=== PATIENT | male | born 1935 | race Caucasian/White ===

== ENCOUNTER → 2017-12-28 | Outpatient (CLI) | payer MEDICARE, OTHER ==
[~2017-12-28] MED LIST: ASPI81CH PO; CELE200 PO; LEVSOD137 PO; Lisinopril2.5 MG; METF500 PO; Percocet 5-3251 EACH PO
[2017-12-28 15:16] LABS: Alanine Aminotransfer (ALT/SGP 19 U/L (12-78); Albumin, Blood 3.3 g/dL (3.4-5.0); Albumin/Globulin Ratio 0.7 (0.8-1.8); Alk Phos 405 U/L (50-136); Anion Gap 6 mmol/L (6-16); Aspartate Aminotrans (AST/SGOT 41 U/L (12-37); Bilirubin, Total 0.5 mg/dL (0.1-1.0); Blood Urea Nitrogen 13 mg/dL (8-24); Bun/Creatinine Ratio 16.6 (12.0-20.0); CO2, Blood 30 mmol/L (21-32); Calcium, Blood 8.7 mg/dL (8.5-10.1); Chloride, Blood 101 mmol/L (98-108); Creatinine, Blood 0.79 mg/dL (0.60-1.20); Globulin, Blood 4.8 g/dL (2.2-4.0); Glomerular Filtration Rate >60 (60-); Glucose, Blood 86 mg/dL (70-99); Potassium, Blood 4.6 mmol/L (3.5-5.5); Sodium, Blood 137 mmol/L (136-145); Total Protein, Blood 8.1 g/dL (6.4-8.2)
[2017-12-28 15:30] LABS: BASOPHILS ABSOLUTE AUTO 0.07 K/mm3 (0.00-0.23); BASOPHILS PERCENT AUTO 1 % (0-2); EOSINOPHILS ABSOLUTE AUTO 0.28 K/mm3 (0.00-0.68); EOSINOPHILS PERCENT AUTO 3 % (0-6); Hematocrit 39.3 % (37.0-53.0); Hemoglobin 12.3 g/dL (13.5-17.5); IMMATURE GRAN PERCENT AUTO 2 % (0-1); LYMPHOCYTES ABSOLUTE AUTO 1.52 K/mm3 (0.84-5.20); LYMPHOCYTES PERCENT AUTO 18 % (21-46); MONOCYTES ABSOLUTE AUTO 0.89 K/mm3 (0.16-1.47); MONOCYTES PERCENT AUTO 10 % (4-13); Mean Corpuscular HGB 29.1 pg (26.0-34.0); Mean Corpuscular HGB Conc 31.3 g/dL (31.5-36.5); Mean Corpuscular Volume 93 fL (80-100); Mean Platelet Volume 8.8 fL (9.1-12.4); NEUTROPHILS ABSOLUTE AUTO 5.56 K/mm3 (1.96-9.15); NEUTROPHILS PERCENT AUTO 65 % (41-73); Platelet Count 396 K/mm3 (150-400); RDW Coefficient Variation 13.6 % (11.7-14.2); RDW Standard Deviation 46.3 fL (35.1-46.3); Red Blood Cell Count 4.23 M/mm3 (4.30-5.90); White Blood Cell Count 8.52 K/mm3 (4.00-11.30)
== END ==
LOC: LAB SHORT 14:45
PROVIDERS: Nurse Practitioner
DX: M54.5 Low back pain (principal)
CPT/HCPCS: 80053; 85025; 85027; 85651

== ENCOUNTER 2017-12-31 08:19 | Emergency (ER) | payer MEDICARE, OTHER ==
[~2017-12-31] VITALS: Ht 177.8 cm; Wt 95.2 kg
[2017-12-31] MEDS ORDERED: LEVSOD137 PO (08:37)
[2017-12-31] MEDS ORDERED: CELE200 PO (08:37)
[2017-12-31] MEDS ORDERED: METF500 PO (08:37)
[2017-12-31] MEDS ORDERED: Lisinopril2.5 MG (08:38)
[2017-12-31] MEDS ORDERED: ASPI81CH PO (08:38)
[2017-12-31 09:06] LABS: BASOPHILS ABSOLUTE AUTO 0.04 K/mm3 (0.00-0.23); BASOPHILS PERCENT AUTO 0 % (0-2); EOSINOPHILS ABSOLUTE AUTO 0.05 K/mm3 (0.00-0.68); EOSINOPHILS PERCENT AUTO 0 % (0-6); Hemoglobin 12.4 g/dL (13.5-17.5); IMMATURE GRAN ABSOLUTE AUTO 0.15 K/mm3 (0.00-0.10); IMMATURE GRAN PERCENT AUTO 1 % (0-1); LYMPHOCYTES ABSOLUTE AUTO 1.22 K/mm3 (0.84-5.20); LYMPHOCYTES PERCENT AUTO 10 % (21-46); MONOCYTES ABSOLUTE AUTO 1.93 K/mm3 (0.16-1.47); MONOCYTES PERCENT AUTO 15 % (4-13); Mean Corpuscular HGB 29.5 pg (26.0-34.0); Mean Corpuscular HGB Conc 31.8 g/dL (31.5-36.5); Mean Corpuscular Volume 93 fL (80-100); NEUTROPHILS ABSOLUTE AUTO 9.22 K/mm3 (1.96-9.15); NEUTROPHILS PERCENT AUTO 73 % (41-73); Platelet Count 340 K/mm3 (150-400); RDW Coefficient Variation 13.9 % (11.7-14.2); RDW Standard Deviation 47.2 fL (35.1-46.3); Red Blood Cell Count 4.21 M/mm3 (4.30-5.90); White Blood Cell Count 12.61 K/mm3 (4.00-11.30)
[2017-12-31 10:09] LABS: Glutamyl Transpeptidase, GGT 159 U/L (15-85)
[2017-12-31 10:17] LABS: Alanine Aminotransfer (ALT/SGP 13 U/L (12-78); Albumin, Blood 3.1 g/dL (3.4-5.0); Albumin/Globulin Ratio 0.7 (0.8-1.8); Alk Phos 470 U/L (50-136); Anion Gap 11 mmol/L (6-16); Aspartate Aminotrans (AST/SGOT 58 U/L (12-37); Blood Urea Nitrogen 23 mg/dL (8-24); Bun/Creatinine Ratio 28.9 (12.0-20.0); CO2, Blood 24 mmol/L (21-32); Chloride, Blood 102 mmol/L (98-108); Globulin, Blood 4.6 g/dL (2.2-4.0); Glomerular Filtration Rate >60 (60-); Glucose, Blood 108 mg/dL (70-99); Potassium, Blood 4.1 mmol/L (3.5-5.5); Sodium, Blood 137 mmol/L (136-145); Total Protein, Blood 7.7 g/dL (6.4-8.2)
[2017-12-31] MEDS ORDERED: Percocet 5-3251 EACH PO (10:40)
== END 2017-12-31 10:55 | disposition home or self-care (01) ==
LOC: ER 08:19 → LAB 08:19 → EDSTATUS 08:20 → ER 10:55
PROVIDERS: Emergency Medicine; Internal Medicine
DX: M54.5 Low back pain (principal); I10 Essential (primary) hypertension; E11.9 Type 2 diabetes mellitus without complications; I48.91 Unspecified atrial fibrillation; R93.7 Abnormal findings on diagnostic imaging of other parts of musculoskeletal system; R79.89 Other specified abnormal findings of blood chemistry; Z79.84 Long term (current) use of oral hypoglycemic drugs; Z79.899 Other long term (current) drug therapy; Z79.82 Long term (current) use of aspirin; Z79.891 Long term (current) use of opiate analgesic; Z85.9 Personal history of malignant neoplasm, unspecified
CPT/HCPCS: 36415; 72070; 72100; 80053; 82977; 83036; 84153; 84443; 85025; 99283

== ENCOUNTER → 2018-03-04 | Outpatient (CLI) | payer MEDICARE, OTHER | END | disposition home or self-care (01) | LOC: LAB SHORT 07:53 → PLD 07:53 | DX: L81.4 Other melanin hyperpigmentation (principal) | CPT/HCPCS: 88305 ==

== ENCOUNTER → 2019-02-26 | Outpatient (CLI) | payer MEDICARE, OTHER | END | disposition home or self-care (01) | LOC: LAB SHORT 09:09 → PLD 09:09 | DX: D48.5 Neoplasm of uncertain behavior of skin (principal) | CPT/HCPCS: 88305 ==

== ENCOUNTER 2019-06-24 14:28 | Day surgery (SDC) | payer MEDICARE, OTHER | END 2019-06-24 22:48 | disposition home or self-care (01) | LOC: US 14:28 | DX: J90 Pleural effusion, not elsewhere classified (principal); C61 Malignant neoplasm of prostate; Z79.01 Long term (current) use of anticoagulants; Z51.81 Encounter for therapeutic drug level monitoring | CPT/HCPCS: 32555; 36415; 71045; 85610; 85730; 88108 ==

== ENCOUNTER 2019-07-22 14:01 | Day surgery (SDC) | payer MEDICARE, OTHER | END 2019-07-22 23:07 | disposition home or self-care (01) | LOC: US 14:01 | DX: J90 Pleural effusion, not elsewhere classified (principal); C61 Malignant neoplasm of prostate | CPT/HCPCS: 32555; 71045 ==

== ENCOUNTER 2019-08-05 13:49 | Inpatient (IN) | payer MEDICARE, OTHER ==
[~2019-08-05] VITALS: Ht 177.8 cm; Wt 101.8 kg
[2019-08-05 14:41] LABS: BASOPHILS ABSOLUTE AUTO 0.04 K/mm3 (0.00-0.23); BASOPHILS PERCENT AUTO 1 % (0-2); EOSINOPHILS ABSOLUTE AUTO 0.18 K/mm3 (0.00-0.68); EOSINOPHILS PERCENT AUTO 4 % (0-6); Hematocrit 36.2 % (37.0-53.0); Hemoglobin 11.6 g/dL (13.5-17.5); IMMATURE GRAN ABSOLUTE AUTO 0.03 K/mm3 (0.00-0.10); IMMATURE GRAN PERCENT AUTO 1 % (0-1); LYMPHOCYTES PERCENT AUTO 13 % (21-46); MONOCYTES ABSOLUTE AUTO 0.69 K/mm3 (0.16-1.47); MONOCYTES PERCENT AUTO 15 % (4-13); Mean Corpuscular HGB 32.7 pg (26.0-34.0); Mean Corpuscular Volume 102 fL (80-100); Mean Platelet Volume 10.1 fL (9.1-12.4); NEUTROPHILS ABSOLUTE AUTO 2.95 K/mm3 (1.96-9.15); NEUTROPHILS PERCENT AUTO 66 % (41-73); Platelet Count 295 K/mm3 (150-400); RDW Coefficient Variation 15.9 % (11.7-14.2); Red Blood Cell Count 3.55 M/mm3 (4.30-5.90); White Blood Cell Count 4.49 K/mm3 (4.00-11.30)
[2019-08-05 15:09] LABS: Alanine Aminotransfer (ALT/SGP 11 U/L (12-78); Albumin, Blood 3.2 g/dL (3.4-5.0); Alk Phos 84 U/L (50-136); Anion Gap 2 mmol/L (6-16); Aspartate Aminotrans (AST/SGOT 36 U/L (12-37); Bilirubin, Total 0.7 mg/dL (0.1-1.0); Blood Urea Nitrogen 17 mg/dL (8-24); Bun/Creatinine Ratio 22.1 (12.0-20.0); CO2, Blood 31 mmol/L (21-32); Calcium, Blood 8.3 mg/dL (8.5-10.1); Chloride, Blood 109 mmol/L (98-108); Creatinine, Blood 0.77 mg/dL (0.60-1.20); Globulin, Blood 3.3 g/dL (2.2-4.0); Glomerular Filtration Rate >60 (60-); Glucose, Blood 100 mg/dL (70-99); Sodium, Blood 142 mmol/L (136-145); Total Protein, Blood 6.5 g/dL (6.4-8.2); Troponin I <0.015 ng/mL (0.000-0.040)
--- NOTE | 2019-08-05 23:17 | NUR ---
ordered cath, inserted with minimum discomfort for pt, draining clear urine, will send sample to lab for ua culture, medicated for pain prior to procedure. a+o, on lasix bid, followed dpt procedure for keller insert
[2019-08-06 01:01] LABS: Source, Urine Catheter
[2019-08-06 01:06] LABS: Bilirubin, Urine Neg (Neg); Blood, Urine 1+ (Neg); Glucose Qualitative, Urine Neg (Neg); Ketones, Urine Neg (Neg); Leukocyte Esterase, Urine Neg (Neg); Nitrite, Urine Neg (Neg); Protein, Urine Neg (Neg); Urobilinogen, Urine NORM (Normal)
[2019-08-06 01:08] LABS: Appearance, Urine Clear (Clear); Color, Urine Pale Yellow (P-Yellow)
[2019-08-06 01:14] LABS: Bacteria Not Seen /hpf; Red Blood Cells, Urine 0-2 /hpf (0-2); Squamous Epithelial Cells Not Seen /hpf (Few); White Blood Cells, Urine Not Seen /hpf (0-5)
[2019-08-06 04:26] LABS: BASOPHILS ABSOLUTE AUTO 0.04 K/mm3 (0.00-0.23); BASOPHILS PERCENT AUTO 1 % (0-2); EOSINOPHILS ABSOLUTE AUTO 0.18 K/mm3 (0.00-0.68); EOSINOPHILS PERCENT AUTO 5 % (0-6); Hematocrit 37.7 % (37.0-53.0); Hemoglobin 11.8 g/dL (13.5-17.5); IMMATURE GRAN ABSOLUTE AUTO 0.02 K/mm3 (0.00-0.10); IMMATURE GRAN PERCENT AUTO 1 % (0-1); LYMPHOCYTES ABSOLUTE AUTO 0.58 K/mm3 (0.84-5.20); LYMPHOCYTES PERCENT AUTO 14 % (21-46); MONOCYTES ABSOLUTE AUTO 0.73 K/mm3 (0.16-1.47); MONOCYTES PERCENT AUTO 18 % (4-13); Mean Corpuscular HGB 31.6 pg (26.0-34.0); Mean Corpuscular HGB Conc 31.3 g/dL (31.5-36.5); Mean Corpuscular Volume 101 fL (80-100); Mean Platelet Volume 9.8 fL (9.1-12.4); NEUTROPHILS ABSOLUTE AUTO 2.49 K/mm3 (1.96-9.15); NEUTROPHILS PERCENT AUTO 62 % (41-73); Platelet Count 270 K/mm3 (150-400); RDW Coefficient Variation 15.9 % (11.7-14.2); RDW Standard Deviation 59.4 fL (35.1-46.3); Red Blood Cell Count 3.73 M/mm3 (4.30-5.90); White Blood Cell Count 4.04 K/mm3 (4.00-11.30)
[2019-08-06 04:54] LABS: Alanine Aminotransfer (ALT/SGP 12 U/L (12-78); Albumin, Blood 3.4 g/dL (3.4-5.0); Alk Phos 78 U/L (50-136); Anion Gap 5 mmol/L (6-16); Aspartate Aminotrans (AST/SGOT 22 U/L (12-37); Bilirubin, Total 0.7 mg/dL (0.1-1.0); Blood Urea Nitrogen 15 mg/dL (8-24); Bun/Creatinine Ratio 17.6 (12.0-20.0); CO2, Blood 34 mmol/L (21-32); Calcium, Blood 8.2 mg/dL (8.5-10.1); Chloride, Blood 103 mmol/L (98-108); Creatinine, Blood 0.85 mg/dL (0.60-1.20); Globulin, Blood 3.3 g/dL (2.2-4.0); Glomerular Filtration Rate >60 (60-); Glucose, Blood 111 mg/dL (70-99); Potassium, Blood 3.1 mmol/L (3.5-5.5); Sodium, Blood 142 mmol/L (136-145); Total Protein, Blood 6.7 g/dL (6.4-8.2); Troponin I 0.025 ng/mL (0.000-0.040)
--- NOTE | 2019-08-06 06:42 | NUR ---
a+o, draining light yellow urine in keller, call light in reach, room air, minimized movement so no sob episodes, will continue to monitor and treat until able to share bsr with day staff, a+o, legs remain swollen
[2019-08-06 10:09] LABS: Automated BF WBC Count 0.285 K/mm3 (0-999); Body Fluid WBC Count 285 /mm3 (0-999)
[2019-08-06 10:13] LABS: pH, Body Fluid 7.9
[2019-08-06 10:28] LABS: Glucose, Body Fluid 122 mg/dL; Lactate Dehydrogenase, Body Fl 136 U/L; Protein, Body Fluid 2.9 g/dL
[2019-08-06 10:51] LABS: RBC Count, Body Fluid 90 /mm3 (0-0)
[2019-08-06 10:55] LABS: Total Cell Count, Body Fluid 100
[2019-08-06 10:56] LABS: Appearance, Body Fluid Clear (Clear); Color, Body Fluid L Yellow (None-Yellow)
--- NOTE | 2019-08-06 16:55 | NUR ---
SHIFT SUMMARY NO ACUTE CHANGES. PATIENT DENIES PAIN, NAUSEA, AND SHORTNESS OF BREATH. PATIENT UP SBA IN ROOM. PATIENT HAD THORACENTISIS TODAY. PATIENT NAPPED OFF AND ON DURING SHIFT. PATIENT REPORTS HE IS FEELING MUCH BETTER. CALL LIGHT IN REACH.
[2019-08-07 04:59] LABS: Hematocrit 35.6 % (37.0-53.0); Hemoglobin 11.5 g/dL (13.5-17.5); Mean Corpuscular HGB 31.9 pg (26.0-34.0); Mean Corpuscular HGB Conc 32.3 g/dL (31.5-36.5); Mean Corpuscular Volume 99 fL (80-100); Mean Platelet Volume 9.7 fL (9.1-12.4); Platelet Count 282 K/mm3 (150-400); RDW Coefficient Variation 15.9 % (11.7-14.2); RDW Standard Deviation 57.3 fL (35.1-46.3); White Blood Cell Count 5.18 K/mm3 (4.00-11.30)
[2019-08-07 06:04] LABS: Albumin, Blood 2.9 g/dL (3.4-5.0); Anion Gap 7 mmol/L (6-16); Blood Urea Nitrogen 20 mg/dL (8-24); Bun/Creatinine Ratio 20.6 (12.0-20.0); CO2, Blood 33 mmol/L (21-32); Calcium, Blood 8.9 mg/dL (8.5-10.1); Chloride, Blood 100 mmol/L (98-108); Creatinine, Blood 0.97 mg/dL (0.60-1.20); Glomerular Filtration Rate >60 (60-); Glucose, Blood 111 mg/dL (70-99); Phosphorus, Blood 4.6 mg/dL (2.5-4.9); Potassium, Blood 3.6 mmol/L (3.5-5.5); Sodium, Blood 140 mmol/L (136-145)
--- NOTE | 2019-08-07 07:17 | NUR ---
a+o, saline locked, room air, bsr shared with pt and staff, hearing aids were in so able to participate in bsr, call light in reach, no major change in condition during shift
--- NOTE | 2019-08-07 18:21 | NUR ---
SHIFT SUMMARY. A&OX4, SBA TO BATHROOM, PT IS AWARE OF LIMITATIONS AND CALLS APPROPRIATELY. PT DENIES PAIN, SOB, N/V. HARLEY CATHETER REMOVED THIS AFTERNOON, PT VOIDING WIHTOUT ISSUE.
[2019-08-08 04:53] LABS: BASOPHILS ABSOLUTE AUTO 0.03 K/mm3 (0.00-0.23); BASOPHILS PERCENT AUTO 1 % (0-2); EOSINOPHILS ABSOLUTE AUTO 0.38 K/mm3 (0.00-0.68); EOSINOPHILS PERCENT AUTO 7 % (0-6); Hematocrit 35.7 % (37.0-53.0); Hemoglobin 11.5 g/dL (13.5-17.5); IMMATURE GRAN ABSOLUTE AUTO 0.04 K/mm3 (0.00-0.10); IMMATURE GRAN PERCENT AUTO 1 % (0-1); LYMPHOCYTES ABSOLUTE AUTO 0.74 K/mm3 (0.84-5.20); LYMPHOCYTES PERCENT AUTO 13 % (21-46); MONOCYTES ABSOLUTE AUTO 1.04 K/mm3 (0.16-1.47); MONOCYTES PERCENT AUTO 18 % (4-13); Mean Corpuscular HGB 31.7 pg (26.0-34.0); Mean Corpuscular HGB Conc 32.2 g/dL (31.5-36.5); Mean Corpuscular Volume 98 fL (80-100); Mean Platelet Volume 9.5 fL (9.1-12.4); NEUTROPHILS ABSOLUTE AUTO 3.66 K/mm3 (1.96-9.15); NEUTROPHILS PERCENT AUTO 62 % (41-73); Platelet Count 290 K/mm3 (150-400); RDW Coefficient Variation 15.7 % (11.7-14.2); RDW Standard Deviation 56.2 fL (35.1-46.3); Red Blood Cell Count 3.63 M/mm3 (4.30-5.90); White Blood Cell Count 5.89 K/mm3 (4.00-11.30)
[2019-08-08 05:13] LABS: Albumin, Blood 2.9 g/dL (3.4-5.0); Anion Gap 6 mmol/L (6-16); Blood Urea Nitrogen 25 mg/dL (8-24); Bun/Creatinine Ratio 24.5 (12.0-20.0); CO2, Blood 36 mmol/L (21-32); Calcium, Blood 9.4 mg/dL (8.5-10.1); Chloride, Blood 97 mmol/L (98-108); Creatinine, Blood 1.02 mg/dL (0.60-1.20); Glomerular Filtration Rate >60 (60-); Glucose, Blood 102 mg/dL (70-99); Phosphorus, Blood 5.2 mg/dL (2.5-4.9); Potassium, Blood 4.1 mmol/L (3.5-5.5); Sodium, Blood 139 mmol/L (136-145)
--- NOTE | 2019-08-08 06:49 | NUR ---
a+o, [place] without hearing aids, medicated as prescribed, edema is reduced calllight in reach, saline locked, room air, will share bsr with staff and pt
--- NOTE | 2019-08-08 18:05 | NUR ---
SHIFT SUMMARY. A&OX4, INDEPENDENT IN ROOM. PT DENIES PAIN, SOB, N/V. PT/OT EVAL COMPLETED TODAY, IT IS RECOMENDED HOME WITH HOME HEALTH. NO NEW CHANGES OR CONCERNS.
--- NOTE | 2019-08-09 05:14 | NUR ---
SUMMARY NO ACUTE CHANGES NOTED THROUGH THE NIGHT. PT HAS SLEPT WITH NO PROBLEMS. PT IS INDEPENDENT IN THE ROOM AND CALLS PRN. CALL LIGHT IS IN REACH. TM
[2019-08-09 09:04] LABS: Anion Gap 6 mmol/L (6-16); Blood Urea Nitrogen 25 mg/dL (8-24); Bun/Creatinine Ratio 22.7 (12.0-20.0); CO2, Blood 35 mmol/L (21-32); Calcium, Blood 9.6 mg/dL (8.5-10.1); Chloride, Blood 95 mmol/L (98-108); Glomerular Filtration Rate >60 (60-); Glucose, Blood 125 mg/dL (70-99); Potassium, Blood 4.2 mmol/L (3.5-5.5); Sodium, Blood 136 mmol/L (136-145)
--- NOTE | 2019-08-09 10:00 | NUR ---
THE PTS FAMILY NOTICED THAT THE PT SUDDENLY WAS UNABLE TO VERBALIZE, AND APPEARED FRUSTRATED, THE PT DID APPEAR CONFUSED, WAS TRYING TO DISROBE WAS UNABLE TO AMBULATE WITHOUT MODERATE ASSISTANCE, VS TAKEN WNL, A CALL WAS MADE TO SHIRLEY BERNSTEIN
[2019-08-09 10:38] LABS: BASOPHILS ABSOLUTE AUTO 0.03 K/mm3 (0.00-0.23); BASOPHILS PERCENT AUTO 1 % (0-2); EOSINOPHILS ABSOLUTE AUTO 0.27 K/mm3 (0.00-0.68); EOSINOPHILS PERCENT AUTO 4 % (0-6); Hematocrit 39.3 % (37.0-53.0); Hemoglobin 12.8 g/dL (13.5-17.5); IMMATURE GRAN ABSOLUTE AUTO 0.06 K/mm3 (0.00-0.10); IMMATURE GRAN PERCENT AUTO 1 % (0-1); LYMPHOCYTES PERCENT AUTO 13 % (21-46); MONOCYTES ABSOLUTE AUTO 1.03 K/mm3 (0.16-1.47); MONOCYTES PERCENT AUTO 17 % (4-13); Mean Corpuscular HGB 31.4 pg (26.0-34.0); Mean Corpuscular HGB Conc 32.6 g/dL (31.5-36.5); Mean Corpuscular Volume 96 fL (80-100); Mean Platelet Volume 9.9 fL (9.1-12.4); NEUTROPHILS ABSOLUTE AUTO 3.96 K/mm3 (1.96-9.15); NEUTROPHILS PERCENT AUTO 64 % (41-73); Platelet Count 335 K/mm3 (150-400); RDW Coefficient Variation 15.7 % (11.7-14.2); RDW Standard Deviation 54.9 fL (35.1-46.3); Red Blood Cell Count 4.08 M/mm3 (4.30-5.90); White Blood Cell Count 6.15 K/mm3 (4.00-11.30)
[2019-08-09 10:47] LABS: Albumin, Blood 3.4 g/dL (3.4-5.0); Albumin/Globulin Ratio 0.9 (0.8-1.8); Bilirubin, Direct 0.3 mg/dL (0.0-0.3); Bilirubin, Indirect 0.6 mg/dL (0.1-0.7); Bilirubin, Total 0.9 mg/dL (0.1-1.0); Globulin, Blood 3.7 g/dL (2.2-4.0); Total Protein, Blood 7.1 g/dL (6.4-8.2)
[2019-08-09 10:58] LABS: Source, Urine Clean Catch
[2019-08-09 11:19] LABS: Appearance, Urine Clear (Clear); Bilirubin, Urine Neg (Neg); Blood, Urine Neg (Neg); Color, Urine Yellow (P-Yellow); Glucose Qualitative, Urine Neg (Neg); Ketones, Urine Neg (Neg); Leukocyte Esterase, Urine Neg (Neg); Nitrite, Urine Neg (Neg); Protein, Urine Neg (Neg); Urobilinogen, Urine NORM (Normal)
--- NOTE | 2019-08-09 12:49 | NUR ---
CHECKED THE PTS BLOOD SUGAR PER FAMILY REQUEST, BLOOD SUGAR WAS 115
--- NOTE | 2019-08-09 17:46 | NUR ---
THE PT IS A/OX3, PT IS UP WITH MINIMAL TO MODERATE ASSIST UP TO THE BATHROOM, THE PT THIS AM BECAME CONFUSED AND NON VOCAL FOR A TIME, WAS UNABLE TO GET UP WITHOUT ASSISTANCE, A CALL WAS MADE TO DR. WATSON WHO CAME TO ASSESS THE PT, A CT SCAN OF THE HEAD WAS ORDERED AND DONE, A UA WAS ORDERED AND COLLECTED THE PTS FAMILY AND FRIEND HAVE BEEN AT THE BEDSIDE T/O THE DAY, THE PT APPEARS TO BE BREATHING EASILY ON RA, DENIED HAVING ANY PAIN T/O THE DAY, CALL LIGHT IN REACH
--- NOTE | 2019-08-10 00:16 | NUR ---
CONFUSION/AGITATION PT WAS A/OX4 TO MY QUESTIONS AT THE BEGINNING OF THE SHIFT, BUT APPEARED AGIATED TRYING TO DISROBE I WAS DOING MY ASSESSMENT. THE EVENING PROGRESSED PT CONFUSION RESUMED FROM DAYSHIFT. PT ATTEMPTED TO CLIMB OOB SEVERAL TIMES WITHIN AN HOUR DESPITE REDIRECTION AND ORIENTATION. PT DOES NOT KNOW WHERE HE IS WHEN ASKED, AND DOES NOT FOLLOW DIRECTION. PEANUT SORTER NOTIFIED. SCU ASSIGNMENT MADE, AND PT TRANSFFERED TO SCU RM 349. REPORT GIVEN TO ASHLEY BOYKIN RN. BELONGININGS WITH PT.
--- NOTE | 2019-08-10 02:29 | NUR ---
Pt transferred to room [facility] around 0100. VSS.
--- NOTE | 2019-08-10 04:02 | NUR ---
Shift summary: Pt transferred to room 349 from room 360 last pm due to increasing confusion. Pt weak and confused. Pt keeps trying to get out of bed for no reason but is easily directed back to bed. Bed alarm on. Head ct was neg. Pt can follow commands and speech is ok. Incontinent of urine x 1 .
[2019-08-10 08:53] LABS: Alanine Aminotransfer (ALT/SGP 11 U/L (12-78); Albumin, Blood 3.3 g/dL (3.4-5.0); Albumin/Globulin Ratio 0.9 (0.8-1.8); Alk Phos 80 U/L (50-136); Anion Gap 6 mmol/L (6-16); Aspartate Aminotrans (AST/SGOT 30 U/L (12-37); Bilirubin, Total 0.9 mg/dL (0.1-1.0); Blood Urea Nitrogen 29 mg/dL (8-24); Bun/Creatinine Ratio 25.2 (12.0-20.0); CO2, Blood 34 mmol/L (21-32); Calcium, Blood 9.3 mg/dL (8.5-10.1); Chloride, Blood 96 mmol/L (98-108); Creatinine, Blood 1.15 mg/dL (0.60-1.20); Free Thyroxine 1.45 ng/dL (0.70-1.60); Globulin, Blood 3.5 g/dL (2.2-4.0); Glomerular Filtration Rate >60 (60-); Glucose, Blood 110 mg/dL (70-99); Potassium, Blood 3.8 mmol/L (3.5-5.5); Sodium, Blood 136 mmol/L (136-145); Total Protein, Blood 6.8 g/dL (6.4-8.2)
--- NOTE | 2019-08-10 17:27 | NUR ---
HE HAS BEEN BACK AND FORTH FROM THE BED TO THE CHAIR MULTIPLE TIMES TODAY, ALWAYS WITH 1 ASSIST. HE HAS NEVER USED THE CALL LIGHT. THE [employer]ERA STAFF HAS CALLED EACH TIME TO TELL US BEFORE THE ALARMS SOUNDED. HE KNOW PERSON, PLACE, AND TIME BUT HAS A BLANK STARE AND DELAYED VERBAL RESPONSES. HIS RESPONSES ARE APPROPRIATE. HIS DAUGHTER VISITED THIS AM AND HIS NEIGHBOR FRIEND THIS AFTERNOON. HE HAS BEEN BOTH CONTINENT AND INCONTINENT. VSS. NO C/O PAIN OR SOB.
[2019-08-11 04:58] LABS: BASOPHILS ABSOLUTE AUTO 0.05 K/mm3 (0.00-0.23); BASOPHILS PERCENT AUTO 1 % (0-2); EOSINOPHILS ABSOLUTE AUTO 0.18 K/mm3 (0.00-0.68); EOSINOPHILS PERCENT AUTO 3 % (0-6); Hematocrit 38.2 % (37.0-53.0); Hemoglobin 12.6 g/dL (13.5-17.5); IMMATURE GRAN ABSOLUTE AUTO 0.07 K/mm3 (0.00-0.10); IMMATURE GRAN PERCENT AUTO 1 % (0-1); LYMPHOCYTES ABSOLUTE AUTO 0.77 K/mm3 (0.84-5.20); LYMPHOCYTES PERCENT AUTO 12 % (21-46); MONOCYTES PERCENT AUTO 17 % (4-13); Mean Corpuscular HGB 31.6 pg (26.0-34.0); Mean Corpuscular Volume 96 fL (80-100); Mean Platelet Volume 9.7 fL (9.1-12.4); NEUTROPHILS ABSOLUTE AUTO 4.29 K/mm3 (1.96-9.15); NEUTROPHILS PERCENT AUTO 66 % (41-73); Platelet Count 307 K/mm3 (150-400); RDW Coefficient Variation 15.3 % (11.7-14.2); Red Blood Cell Count 3.99 M/mm3 (4.30-5.90); White Blood Cell Count 6.46 K/mm3 (4.00-11.30)
--- NOTE | 2019-08-11 05:12 | NUR ---
SHIFT SUMMARY- NO ACUTE EVENTS OVERNIGHT. PT. ASLEEP T/O THE NIGHT. 1 ASSIST WITH WALKER. DENIED ANY PAIN OR DISCOMFORT, NO APPARENT DISTRESS NOTED. D/C PLANNING FOR [facility] ASSISTED LIVING, PT. LIVES ALONE AND UNABLE TO CARE FOR HIMSELF. CALL LIGHT WITHIN REACH, SIDE RAILS UP X2, AND BED ALARM ON. WILL CONT TO MONITOR
[2019-08-11 05:21] LABS: Anion Gap 8 mmol/L (6-16); Blood Urea Nitrogen 35 mg/dL (8-24); CO2, Blood 32 mmol/L (21-32); Calcium, Blood 9.4 mg/dL (8.5-10.1); Chloride, Blood 95 mmol/L (98-108); Creatinine, Blood 1.06 mg/dL (0.60-1.20); Glomerular Filtration Rate >60 (60-); Glucose, Blood 117 mg/dL (70-99); Potassium, Blood 4.2 mmol/L (3.5-5.5); Sodium, Blood 135 mmol/L (136-145)
--- NOTE | 2019-08-11 14:58 | NUR ---
SUMMARY- PT ALERT TO SELF- EXPRESSIVE APHASIA. GOT UP TO THE CHAIR FOR BREAKFAST AND LUNCH, 2 SBA WITH WALKER, GOOD STRENGTH, POOR COORDINATION, RIGID AND SLOW. PT IS A FEEDER, MECH SOFT/NECT THICK. PLAN FOR DC TO [facility] AT 1630.
--- NOTE | 2019-08-11 15:01 | NUR ---
SUMMARY- PT ALERT AND ORIENTED X3- SLOW TO RESPOND, STARES. PT AMBULATES 1 SBA WITH WALKER, POOR COORDINATION. PT EVAL TODAY STATING PT IS HUGE FALL RISK AND NOT A GOOD CANDIDATE TO GO HOME UNLESS HE HAS 24 HOUR CARE. POW TO BE CONTACTED IN RELATION TO PLACEMENT. KASIE WORKING ON THE CASE. PT UP IN CHAIR FOR DINNER, AND AMBULATED TO THE BATHROOM A FEW TIMES TODAY. LUNGS CLEAR, NO DYSPNEA WITH EXERTION, SATS MID 90'S.
--- NOTE | 2019-08-12 04:26 | NUR ---
SHIFT SUMMARY- PT. RESTED ON/OFF THIS EVENING. UP OOB TO USE URINAL, UNSTEADY GAIT. DENIED ANY FURTHER NEEDS T/O THE NIGHT. D/C PLANNING FOR POSS ASSISTED LIVING. NO APPARENT DISTRESS NOTED. CALL LIGHT WITHIN REACH, SIDE RAILS UP X2, AND BED ALARM ON. WILL CONT TO MONITOR.
[2019-08-12 05:03] LABS: BASOPHILS ABSOLUTE AUTO 0.03 K/mm3 (0.00-0.23); BASOPHILS PERCENT AUTO 1 % (0-2); EOSINOPHILS ABSOLUTE AUTO 0.24 K/mm3 (0.00-0.68); EOSINOPHILS PERCENT AUTO 4 % (0-6); Hematocrit 37.9 % (37.0-53.0); Hemoglobin 12.2 g/dL (13.5-17.5); IMMATURE GRAN ABSOLUTE AUTO 0.07 K/mm3 (0.00-0.10); IMMATURE GRAN PERCENT AUTO 1 % (0-1); LYMPHOCYTES ABSOLUTE AUTO 0.66 K/mm3 (0.84-5.20); LYMPHOCYTES PERCENT AUTO 11 % (21-46); MONOCYTES ABSOLUTE AUTO 1.28 K/mm3 (0.16-1.47); MONOCYTES PERCENT AUTO 20 % (4-13); Mean Corpuscular HGB Conc 32.2 g/dL (31.5-36.5); Mean Corpuscular Volume 96 fL (80-100); Mean Platelet Volume 9.4 fL (9.1-12.4); NEUTROPHILS ABSOLUTE AUTO 3.99 K/mm3 (1.96-9.15); NEUTROPHILS PERCENT AUTO 64 % (41-73); Platelet Count 294 K/mm3 (150-400); RDW Coefficient Variation 15.3 % (11.7-14.2); RDW Standard Deviation 54.5 fL (35.1-46.3); Red Blood Cell Count 3.93 M/mm3 (4.30-5.90); White Blood Cell Count 6.27 K/mm3 (4.00-11.30)
[2019-08-12 05:24] LABS: Anion Gap 6 mmol/L (6-16); Blood Urea Nitrogen 37 mg/dL (8-24); Bun/Creatinine Ratio 33.9 (12.0-20.0); CO2, Blood 32 mmol/L (21-32); Calcium, Blood 9.1 mg/dL (8.5-10.1); Chloride, Blood 98 mmol/L (98-108); Creatinine, Blood 1.09 mg/dL (0.60-1.20); Glomerular Filtration Rate >60 (60-); Glucose, Blood 113 mg/dL (70-99); Potassium, Blood 4.1 mmol/L (3.5-5.5); Sodium, Blood 136 mmol/L (136-145)
[2019-08-12] MEDS ORDERED: FURO40 PO (14:46)
[2019-08-12] MEDS ORDERED: LISI20 PO (14:47)
[2019-08-12] MEDS ORDERED: POTCHL20ER PO (14:48)
[2019-08-12] MEDS ORDERED: PRED5 PO (14:49)
[2019-08-12] MEDS ORDERED: SPIR25 PO (14:49)
[2019-08-12] MEDS ORDERED: CARV3.125 PO (14:51)
--- NOTE | 2019-08-12 15:53 | NUR ---
Discharge Summary Report given to receiving nurse Multani at [facility]. Patient transported by [facility] via W/C. Personal belongings sent with patient. Pt was A/O and cooperative with discharging to SNF.
== END 2019-08-12 15:53 | DRG 292 ==
LOC: ER 13:49 → MEDS 17:53
PROVIDERS: Internal Medicine Endocrinology, Diabetes & Metabolism; Physician Assistant; ADMIT Family Medicine
PROC: 0W993ZX Drainage of Right Pleural Cavity, Percutaneous Approach, Diagnostic (ICD-10-PCS; principal; 2019-08-06)
DX: I11.0 Hypertensive heart disease with heart failure (principal); C79.51 Secondary malignant neoplasm of bone; J94.8 Other specified pleural conditions; I50.43 Acute on chronic combined systolic (congestive) and diastolic (congestive) heart failure; Z66 Do not resuscitate; C61 Malignant neoplasm of prostate; I48.2 Chronic atrial fibrillation; E11.9 Type 2 diabetes mellitus without complications; E03.9 Hypothyroidism, unspecified; G47.33 Obstructive sleep apnea (adult) (pediatric); N40.0 Benign prostatic hyperplasia without lower urinary tract symptoms; H40.20X0 Unspecified primary angle-closure glaucoma, stage unspecified; Z86.718 Personal history of other venous thrombosis and embolism; H35.30 Unspecified macular degeneration; M19.90 Unspecified osteoarthritis, unspecified site; H26.9 Unspecified cataract; Z90.79 Acquired absence of other genital organ(s); Z79.82 Long term (current) use of aspirin; Z79.84 Long term (current) use of oral hypoglycemic drugs; Z87.891 Personal history of nicotine dependence; E66.3 Overweight; E87.6 Hypokalemia; R39.15 Urgency of urination; N40.1 Benign prostatic hyperplasia with lower urinary tract symptoms; Z68.36 Body mass index [BMI] 36.0-36.9, adult
CPT/HCPCS: 32555; 36415; 70470; 71045; 71046; 80048; 80053; 80069; 80076; 81001; 81003; 82945; 82947; 83615; 83880; 83986; 84157; 84439; 84443; 84484; 85025; 85027; 87070; 87077; 87186; 87205; 88108; 88305; 88341; 88342; 89051; 93005; 93010; 96374; 97116; 97161; 97165; 97530; 97535; 99285-25; G0515; J1650; J1940; J7512; Q9967

== ENCOUNTER 2019-11-27 17:48 | Observation (INO) | payer MEDICARE, OTHER ==
[~2019-11-27] VITALS: Ht 177.8 cm; Wt 85.4 kg
[~2019-11-27 17:48] MED LIST changes: -ASPI81CH PO; +Aspirin EC81 MG PO; +CARV3.125 PO; +FURO40 PO; +LISI20 PO; +POTCHL20ER PO; +PRED5 PO; +SPIR25 PO
[2019-11-27 18:33] LABS: Hematocrit 43.5 % (37.0-53.0); Hemoglobin 13.6 g/dL (13.5-17.5); Mean Corpuscular HGB 30.8 pg (26.0-34.0); Mean Corpuscular HGB Conc 31.3 g/dL (31.5-36.5); Mean Corpuscular Volume 99 fL (80-100); Mean Platelet Volume 10.3 fL (9.1-12.4); NRBC ABSOLUTE 0.22 K/mm3 (0.00-0.02); NRBC Auto 2.2 /100 WBC (0.0-0.2); Platelet Count 143 K/mm3 (150-400); RDW Coefficient Variation 15.8 % (11.7-14.2); Red Blood Cell Count 4.41 M/mm3 (4.30-5.90); White Blood Cell Count 10.13 K/mm3 (4.00-11.30)
[2019-11-27 18:43] LABS: Troponin I 0.108 ng/mL (0.000-0.040)
[2019-11-27 18:44] LABS: Alanine Aminotransfer (ALT/SGP 21 U/L (12-78); Albumin, Blood 2.8 g/dL (3.4-5.0); Albumin/Globulin Ratio 0.6 (0.8-1.8); Alk Phos 622 U/L (50-136); Anion Gap 12 mmol/L (6-16); Aspartate Aminotrans (AST/SGOT 129 U/L (12-37); Bilirubin, Total 2.2 mg/dL (0.1-1.0); Blood Urea Nitrogen 28 mg/dL (8-24); CO2, Blood 18 mmol/L (21-32); Calcium, Blood 8.1 mg/dL (8.5-10.1); Chloride, Blood 107 mmol/L (98-108); Globulin, Blood 4.4 g/dL (2.2-4.0); Glucose, Blood 113 mg/dL (70-99); Potassium, Blood 4.7 mmol/L (3.5-5.5); Sodium, Blood 137 mmol/L (136-145); Total Protein, Blood 7.2 g/dL (6.4-8.2)
[2019-11-27 18:45] LABS: Bun/Creatinine Ratio 29.7 (12.0-20.0); Creatinine, Blood 0.94 mg/dL (0.60-1.20); Glomerular Filtration Rate >60 (60-)
[2019-11-27 18:54] LABS: Free Thyroxine 1.1 ng/dL (0.70-1.60)
[2019-11-27 18:56] LABS: Thyroid Stimulating Hormone 31.3 uIU/mL (0.360-4.800); Triiodothyronine, Free 1.09 pg/mL (2.18-3.98)
[2019-11-27 18:59] LABS: CPK Creatine Kinase 421 U/L (39-308)
[2019-11-27 19:08] LABS: BAND PERCENT MAN 4 % (0-8); BASOPHILS PERCENT MAN 1 % (0-2); EOSINOPHILS PERCENT MAN 0 % (0-6); LYMPHOCYTES PERCENT MAN 4 % (21-46); METAMYELOCYTE PERCENT MAN 4 % (0-0); MONOCYTES PERCENT MAN 4 % (4-13); MYELOCYTE PERCENT MAN 3 % (0-0); SEG NEUTROPHILS PERCENT MAN 80 % (41-73); TOTAL CELLS COUNTED 100
[2019-11-27 19:24] LABS: Creatine Kinase MB 1.8 ng/mL (0.0-3.6); Creatine Kinase MB Index 0.4 (0.0-4.0)
[2019-11-27 20:30] LABS: International Normalized Ratio 1.8; Prothrombin Time Results 18.1 Sec (9.7-11.5)
[2019-11-27 20:33] LABS: Source, Urine Clean Catch
[2019-11-27 20:36] LABS: Blood, Urine 2+ (Neg); Glucose Qualitative, Urine Neg (Neg); Ketones, Urine 2+ (Neg); Leukocyte Esterase, Urine 1+ (Neg); Nitrite, Urine Neg (Neg); Protein, Urine 2+ (Neg); Urobilinogen, Urine 3+ (Normal)
[2019-11-27 20:47] LABS: Appearance, Urine Hazy (Clear); Bilirubin, Urine 2+ (Neg); Color, Urine Amber (P-Yellow)
[2019-11-27 20:49] LABS: Amorphous Light (0-Heavy); Bacteria Few /hpf; Mucus Light (0-Heavy); Red Blood Cells, Urine 0-2 /hpf (0-2); Squamous Epithelial Cells Not Seen /hpf (Few)
[2019-11-27] MEDS ORDERED: B-121000 MC3 PO (21:17)
[2019-11-27] MEDS ORDERED: SYNTHROID175 MCG PO (21:18)
[2019-11-28 04:08] LABS: Hematocrit 40.5 % (37.0-53.0); Hemoglobin 12.8 g/dL (13.5-17.5); Mean Corpuscular HGB 30.9 pg (26.0-34.0); Mean Corpuscular HGB Conc 31.6 g/dL (31.5-36.5); Mean Corpuscular Volume 98 fL (80-100); Mean Platelet Volume 10.5 fL (9.1-12.4); NRBC ABSOLUTE 0.28 K/mm3 (0.00-0.02); NRBC Auto 3.1 /100 WBC (0.0-0.2); Platelet Count 141 K/mm3 (150-400); RDW Coefficient Variation 15.9 % (11.7-14.2); RDW Standard Deviation 57.1 fL (35.1-46.3); Red Blood Cell Count 4.14 M/mm3 (4.30-5.90); White Blood Cell Count 9.17 K/mm3 (4.00-11.30)
[2019-11-28 04:36] LABS: Alanine Aminotransfer (ALT/SGP 24 U/L (12-78); Albumin, Blood 2.5 g/dL (3.4-5.0); Albumin/Globulin Ratio 0.7 (0.8-1.8); Alk Phos 542 U/L (50-136); Anion Gap 11 mmol/L (6-16); Aspartate Aminotrans (AST/SGOT 107 U/L (12-37); Bilirubin, Total 1.8 mg/dL (0.1-1.0); Blood Urea Nitrogen 25 mg/dL (8-24); Bun/Creatinine Ratio 28.6 (12.0-20.0); CO2, Blood 21 mmol/L (21-32); Calcium, Blood 7.5 mg/dL (8.5-10.1); Chloride, Blood 107 mmol/L (98-108); Creatinine, Blood 0.88 mg/dL (0.60-1.20); Globulin, Blood 3.5 g/dL (2.2-4.0); Glomerular Filtration Rate >60 (60-); Glucose, Blood 111 mg/dL (70-99); Potassium, Blood 4.3 mmol/L (3.5-5.5); Sodium, Blood 139 mmol/L (136-145)
[2019-11-28 04:47] LABS: BAND PERCENT MAN 5 % (0-8); BASOPHILS ABSOLUTE MAN 0.09 K/mm3 (0.00-0.23); BASOPHILS PERCENT MAN 1 % (0-2); EOSINOPHILS ABSOLUTE MAN 0.09 K/mm3 (0.00-0.68); EOSINOPHILS PERCENT MAN 1 % (0-6); LYMPHOCYTES ABSOLUTE MAN 0.91 K/mm3 (0.84-5.20); LYMPHOCYTES PERCENT MAN 10 % (21-46); METAMYELOCYTE ABSOLUTE MAN 0.18 K/mm3 (0.00-0.00); METAMYELOCYTE PERCENT MAN 2 % (0-0); MONOCYTES ABSOLUTE MAN 0.55 K/mm3 (0.16-1.47); MONOCYTES PERCENT MAN 6 % (4-13); MYELOCYTE ABSOLUTE MAN 0.18 K/mm3 (0.00-0.00); MYELOCYTE PERCENT MAN 2 % (0-0); NEUTROPHILS ABSOLUTE MAN 7.15 K/mm3 (1.96-9.15); SEG NEUTROPHILS PERCENT MAN 73 % (41-73); TOTAL CELLS COUNTED 100
--- NOTE | 2019-11-28 06:11 | NUR ---
SHIFT SUMMARY PT SLEEPING IN ROOM COMFORTABLY A THIS TIME. NO ACUTE CHANGES IN STATUS SINCE ARRIVAL FROM ED. PT WAS FOUND DOWN AT HOME UNLABLE TO REMEMBER EVENTS. PT WAS REPORTED TO HAVE SELF CONVERTED OUT OF AFIB BACK TO NSR IN ED. DENIED CP OR SOB. RESP EVEN UNLABORED ON RA W/ SATS >92%. PT STARTED ON HEPARIN GTT PER PHARMACY, AND LR IN PIV. PT REPORTS STILL DOESN'T REMEMBER WHAT HAPPENED, BUT REPORTS "I DIDN'T FALL". BRUISING NOTED TO BUE, WITH SKIN TEAR ON L ELBOW, DRESSING TO WOUND CHANGED THIS AM. PT WAS MEDICATED ONCE FOR NAUSEA DURING NIGHT. BED ALARM PLACED FOR PT SAFETY, PT EDUCATED TO USE CALL LIGHT IF HE NEEDS TO USE URINAL UNTIL STRONGER. CALL LIGHT IN REACH.
--- NOTE | 2019-11-28 10:00 | NUR ---
REPORT FROM GEE STEELE. ASSUMED PT CARE.
--- NOTE | 2019-11-28 10:40 | NUR ---
BLADDER SCAN 309ML. WILL NOTIFY PROVIDER AND SEE ABOUT HARLEY PLACEMENT, NEW DRESSING TO WOUND ON LEFT ELBOW PLACED.
--- NOTE | 2019-11-28 10:58 | NUR ---
PT DRAWN FROM IV IN RIGHT FA.
--- NOTE | 2019-11-28 12:11 | NUR ---
PT UP TO BSC TO URINATE. 350ML HORTENCIA COLORED URINE COLLECTED. PT BACK TO BED, VERY SLOW AND WEAK WITH MOVEMENTS. ASSISTED PT SITTING UP IN BED AND LUNCH PROVIDED.
--- NOTE | 2019-11-28 12:35 | NUR ---
HEPARIN DOSE ADJUSTED PER PHARMACY. RATE DECREASED TO 20.4ML/HR.
--- NOTE | 2019-11-28 17:41 | NUR ---
REPORT TO MED FLOOR RN. IV HEPARIN STOPPED PER DR CORTÉS ORDERS. IVF STOPPED PER DR ALEXANDRE. PT TO BE MOVED TO MEDICAL FLOOR.
--- NOTE | 2019-11-28 17:41 | NUR ---
Pt awake from nap PT in to eval patient. Pt up to commode with assist with great fatigue. Pt very distraught by needing help with pericare. Pt wanting a bath and comfort. After back to bed pt sitting up did bedbath and theraputic back rub. Reassurred pt he was safe here and cared for. Opened blinds and had him look outside and therputic tiem with deep breathing and trying to calm his stress. Pt relayed that he had had much difficulty with function. He has a house keeper able to relay when she comes and how much it costs for her visits. He eats mostly at [employer] he was still driving. Patient denies headaches or blured vision. no ringing in ears. He denies pain complains mostly of fatigue and excertional dyspnea. States he drifts off but cannot really sleep. He does not remember falling, he has been fearful and stressed becuase of fatigue and worsening memory. Pt became tearfull during conversation. Asked if we could call his family for some help with decisions. He did not want me calling and burdening them. Reviewed with patient his needs and safety and suggested he allow more help in his life. Review with patient his prognosis and what physicans discussed with Oncology. We reviewed suffering and quality of life and hospice. Pt was very amendable to assisted living and hospice support. Advised him that on Sunday we will figure a plan. Encouraged him to eat and sleep and rest this weekend. pt expressed great release of stress at not having to go home. Review of medications and needs with with physician and nursing. Called his son Enrike at [facility] suggestion his number is . will update family on plan of care. Encouraged patient to call his family.
--- NOTE | 2019-11-28 17:55 | NUR ---
PT TO MEDICAL FLOOR.
--- NOTE | 2019-11-28 19:42 | NUR ---
SHIFT SUMMARY: PATIENT XFR FROM PCU-06 THIS SHIFT. PT A&O; CALM AND COOPERATIVE WITH CARE. NO C/O PAIN SINCE ARRIVAL ON MEDICAL FLOOR. COMFORT CARE MEASURES INITIATED THIS SHIFT. REPORT GIVEN TO ONCOMING RN.
--- NOTE | 2019-11-29 04:19 | NUR ---
SHIFT SUMMARY ADMITTED FOR RAPID ATRIAL FIBRILLATION. DNR CODE. COMFORT CARE. A&O X4. RA. BED ALARM ON. [place]. HEARING AIDS IN ROOM. PT DOES AMBULATE W/FWW TO BATHROOM. REGULAR DIET. THYROID & AFIB MEDS STILL SCHEDULED IN EMAR. 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 NO FAMILY IN [place], FRIEND DOES COME TO VISIT. HAS AGREED TO PLACEMENT IN [place] WHERE HIS FAMILY LIVES. CARE MANAGEMENT IS PURSUING PLACEMENT. HE SLEPT PERIODICALLY THROUGHOUT SHIFT. SKIN TEAR ON LEFT ELBOW RE-BANDAGED THIS SHIFT DUE TO BLEEDING. I DID NOTE HEPARIN WAS DC'D ON PREVIOUS SHIFT.
--- NOTE | 2019-11-29 11:57 | NUR ---
Pt resting in bed with his eyes closed and responds with verbal stimuli. Pt appears lethargic and is struggling with keeping his eyes open but appears comfortable. Pt reports feeling tired and is agreeable with this RN to visit at a later time. Spoke with bedside RN Debby and discussed case. Palliative Care will remain available.
--- NOTE | 2019-11-29 14:51 | NUR ---
CHANGED BEDDING, CHANGED BANDAGE ON L ELBOW.
--- NOTE | 2019-11-29 17:51 | NUR ---
SHIFT SUMMARY- PT IS PLESANT AND COOPERATIVE. PT NEIGHBOR CAME TO VISIT TWICE DURING THIS SHIFT BOTH TIMES PT WAS ASLEEP. HE EXPRESSED CONCERN ABOUT THE PT ABILITY TO LIVE ALONE. PT EATING AND DRINKING WELL. PT UP TO THE RESTROOM. PT AMBULATED WITH PHYSICAL THERAPY THIS AFTERNOON AND TOLERATED WELL. CHANGED BANDAGE ON PT LEFT ELBOW.
--- NOTE | 2019-11-30 00:01 | NUR ---
PT STATUS PT BLEEDING - LEFT ELBOW, FOUND OLD BANDAGING DISCARDED IN HIS BED. AFTER CLEANING HIM UP, I APPLIED A HEEL PROTECTOR BANDAGE, COVERED THAT WITH A MEPILEX. THEN USED COBAN TO SECURE IT. BEDDING CHANGED, GOWN CHANGED. I NOTED YESTERDAY THAT HE WAS ON HEPARIN EARLIER IN THE DAY WHICH MIGHT EXPLAIN THE BLEEDING LAST NIGHT, BUT I KNOW HEPARIN HAS A RELATIVELY SHORT HALF-LIFE SO NOW I AM PUZZLED. NO BLOOD THINNERS APPARENT TODAY IN THE EMAR. I WILL CONTINUE TO MONITOR THE BANDAGE TO ENSURE BLEEDING HAS STOPPED.
--- NOTE | 2019-11-30 00:58 | NUR ---
PT STATUS IN RESEARCH I UNDERSTAND THAT THE LIVER IS RESPONSIBLE FOR MAKING CLOTTING FACTORS. I SEE THAT THIS PT HAS CANCER SAM TO THE LIVER, WHICH EXPLAINS THE BLEEDING TO THE LEFT ELBOW. FOR NOW THE BANDAGE IS C/D/I, WILL CONTINUE TO MONITOR.
--- NOTE | 2019-11-30 04:29 | NUR ---
SHIFT SUMMARY ADMITTED FOR RAPID ATRIAL FIBRILLATION. DNR CODE. COMFORT CARE. CARE MANAGEMENT IS PURSUING PLACEMENT IN A SNF IN [place], NEAR [facility]. NO FAMILY IN [place]. 1 STANDBY TO BATHROOM W/FWW. PT HAS ONGOING SLOW BLEED FROM SKIN TEAR ON LEFT ELBOW, SEE PREVIOUS NURSING NOTES. 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 BED ALARM ON. RA. [place], HEARING AIDS IN ROOM. REGULAR DIET. I DID MEASURE BP AND HR BEFORE I GAVE METOPROLOL, ALTHOUGH TRADITIONALLY WE DO NOT MEASURE VITALS ON COMFORT CARE PATIENTS. METOPROLOL IS STILL SCHEDULED ON THE EMAR, I FEEL I MUST MEASURE AT LEAST THOSE TWO VITALS BEFORE ADMINISTRATION OF THIS DRUG.
--- NOTE | 2019-11-30 13:29 | NUR ---
Pt visit this afternoon. Pt resting in bed and denies pain at this time. Plan was to discuss completing POLST today but Pt is withdrawn and forgetful. Re-orientated Pt to reason of hospital stay and plan of care. Pt appears comfortable with no S/S of distress at this time. Spoke with Dr Blanton and discussed case. Palliative Care will remain available.
--- NOTE | 2019-11-30 17:22 | NUR ---
SHIFT SUMMARY- PT IS PLESANT AND COOPERATIVE. HE SLEPT THROUGH MUCH OF THIS SHIFT. CHANGED THE BANDAGE ON HIS ELBOW. HELD ASPRIN THIS MORNING DUE TO THE BLOOD LEAKAGE OF HIS ELBOW WOUND. HIS NEIGHBOR STOPPED BY TO VISIT HIM TODAY BUT HE WAS SLEEPING. EZRA FROM [facility] CAME TO TALK TO HIM TODAY. PT WAS UP TO THE RESTROOM THIS AFTERNOON BUT SEEMED WEAKER ON HIS FEET TODAY.
--- NOTE | 2019-11-30 22:00 | NUR ---
PT. ATTENDS CHANGE DONE AND REPOSITIONED FOR COMFORT. PT. REFUSED PAIN MEDICATION, STATED HAS PAIN W/MOVEMENT. CALL LIGHT WITHIN REACH, SIDE RAILS UPX2, BED IN LOW POSITION, AND BED ALARM ON FOR SAFETY. WILL CONT TO MONITOR.
--- NOTE | 2019-12-01 00:24 | NUR ---
PT. RESTING COMFORTABLY IN BED. NO APPARENT DISTRESS NOTED. CALL LIGHT WITHIN REACH, SIDE RAILS UP X3, AND BED ALARM ON FOR SAFETY. WILL CONT TO MONITOR.
--- NOTE | 2019-12-01 05:30 | NUR ---
SHIFT SUMMARY- PT. ALERT BUT FORGETFUL. PLEASANT AND COOPERATIVE WITH CARE. RESTED COMFORTABLY T/O THE SHIFT. NO APPARENT DISTRESS NOTED. PT. INCONTINENT, STATED FELT WEAK AND UNSTEADY WHEN ATTEMPTED TO GET UP TO THE BATHROOM W/ASSISTANCE. ATTENDS IN PLACE. PT. REFUSED ANY PAIN MEDICATION T/O THE SHIFT, STATED PAINFUL ONLY WITH MOVEMENT. DENIED ANY OTHER NEEDS. CALL LIGHT WITHIN REACH, SIDE RAILS UP X2, AND BED ALARM ON. WILL CONT TO MONITOR.
--- NOTE | 2019-12-01 14:54 | NUR ---
DC'ED ORDERS THIS RN SPOKE WITH DR. GRA ABOUT CC STATUS. PT/OT ALONG WITH OTHER UNEEDED ORDERED DC'ED. WILL CONTINUE TO MONITOR.
--- NOTE | 2019-12-01 14:59 | NUR ---
[facility] note: Mr. Ervin tells me , "I can't go home." When asked how he feels about this, he says, "It is what it is." He appers to understand that he is nearing end-of-life. He also tells me that he accepts these changes. He spoke in spurts and was personable. He smiles easily when he spoke about his 4 marriages. He says he has a son living in [place]. He denied fears and admitted some regrets. Danny responded well to companionship and aids counselor. I will remain available.
--- NOTE | 2019-12-01 15:05 | NUR ---
pt resting and comfortable. review of plan of care with nursing
--- NOTE | 2019-12-01 17:37 | NUR ---
SHIFT SUMMARY NO CHANGES IN COMFORT ASSESSMENT AT THIS TIME. PT DENIES PAIN. RESTING COMFORTABLY IN BED. PT UP TO CHAIR FOR MEALS. WILL CONTINUE TO MONITOR UNTIL TURNOVER IS COMPLETE.
--- NOTE | 2019-12-01 20:19 | NUR ---
PT. RESTING COMFORTABLY IN BED, NO APPARENT DISTRESS NOTED. DENIES ANY NEEDS AT THIS TIME, NO C/O OF PAIN OR DISCOMFORT. CALL LIGHT WITHIN REACH, SIDE RAILS UPX2, AND BED ALARM ON. WILL CONT TO MONITOR.
--- NOTE | 2019-12-02 04:42 | NUR ---
SHIFT SUMMARY- NO ACUTE CHANGES OVERNIGHT. PT. RESTED ON/OFF DURING THE NIGHT. ATIVAN GIVEN PER EMAR X1 DUE TO PT. C/O INSOMNIA. PT. ASSISTED UP TO BATHROOM W/WALKER A FEW TIMES. WAS VERY SOB AND WEAK. PT. CONTINENT/INCONTINENT, ATTENDS IN PLACE. DENIED ANY PAIN T/O THE SHIFT. CALL LIGHT WITHIN REACH AND SIDE RAILS UP X2. WILL CONT TO MONITOR.
--- NOTE | 2019-12-02 04:47 | NUR ---
PERFORMED DSG CHANGE TO ABRASION ON THE LT ELBOW. WOUND CONTS TO DRAIN BLOOD. APPLIED A MEPILEX DSG AND WRAPPED WITH COBAN. PT. TOLERATED WELL. WILL CONT TO MONITOR.
--- NOTE | 2019-12-02 13:41 | NUR ---
BOWEL CARE/PAIN MEDS DR. MEJIA NOTIFIED OF NO BM FOR 5 [address]EL CARE [address] MEJIA GAVE OXYCODONE ORDER FOR PT PAIN WELL. WILL CONTINUE TO MONITOR.
--- NOTE | 2019-12-02 16:17 | NUR ---
Pt resting in bed with his eyes closed. Pt appears comfortable with no S/S of distress at this time. Spoke with bedside RN Arleen and KOLBY Lamar and discussed case. Pt has been more lethargic today but no other concerns at this time. Palliative Care will remain available.
--- NOTE | 2019-12-02 16:46 | NUR ---
SHIFT SUMMARY PT SLEPT MOST THE DAY. PT WAKE FOR MEALS AND BREIF CHANGES. PT TO BE INTERVIEWED TOMORROW FOR PLACEMENT. SONAMAURI TO COME TO [facility] SUNDAY NIGHT. PT DENIES PAIN THIS SHIFT. PT APPEARS COMFORTABLE. NO OTHER CHANGES THIS SHIFT. WILL CONTINUE TO MONITOR UNTIL TURNOVER IS COMPLETE.
--- NOTE | 2019-12-03 00:05 | NUR ---
PT. RESTING COMFORTABLY IN BED, NO APPARENT DISTRESS NOTED. DENIES ANY NEEDS AT THIS TIME. CALL LIGHT WITHIN REACH AND SIDE RAILS UP X2. WILL CONT TO MONITOR.
--- NOTE | 2019-12-03 06:25 | NUR ---
SHIFT SUMMARY- PT. ASLEEP MOST OF THE SHIFT. MEDICATED 1X FOR PAIN. PT. APPEARS TO BE RESTING COMFORTABLY IN BED, NO APPARENT DISTRESS NOTED. ATTENDS IN PLACE. CALL LIGHT WITHIN REACH AND SIDE RAILS UP X2. WILL CONT TO MONITOR.
--- NOTE | 2019-12-03 10:25 | NUR ---
AM ASSESSMENT- PT SITTING UP IN BED EATING BREAKFAST, PT HAS NO COMPLAINTS AT THIS TIME AND DENIES ANY NEEDS. LS CLEAR, ON RA. WILL CONT TO MONITOR.
--- NOTE | 2019-12-03 16:59 | NUR ---
SHIFT SUMMARY- PT COMFORT CARE. PT MEDICATED X1 FOR BACK PAIN BUT FREQUENTLY DENIES NEED FOR PAIN MEDS EVEN THOUGH HE APPEARS TO BE UNCOMFORTABLE. PT UP TO CHAIR WITH 2 ASSIST. PT INCONT AT TIMES. DEL TORO IN TO EVALUATE PT BUT PT WAS TO SLEEPY, THEY REPORT THEY WILL BE BACK TOMORROW. SON ALSO TO ARRIVE TO TOWN TOMORROW. PT CURRENTLY AWAITING PLACEMENT.
--- NOTE | 2019-12-03 19:20 | NUR ---
KRISHAN WAS SLEEPING, HE HAD HIS MEAL IN FRONT OF HIM. STATES HE IS NOT DONE TO LEAVE IT THERE. REPORTS PAIN ALL OVER BUT MOSTLY IN HIS BACK. OFFERED TO REPOSITION HIM, STATES NOT AT THIS TIME. WILL PULL PAIN MED WITH NIGHT MEDS. HE AGREED TO THAT. CALL LIGHT IN REACH.
--- NOTE | 2019-12-03 21:18 | NUR ---
MEDICATED FOR PAIN, WITH HELD BLOOD PRESSURE MEDICATION, HE HAS HAD TWO LOW BP IN THE LAST FEW HOURS. ASSISTED CHILDREN'S MINISTRY DIRECTOR IN ATTENDS CHANGE, AND REPOSITIONING. ATTENDS SATURATED WITH URINE. PERICARE PROVIDED. NO SKIN BREAKDOWN NOTED. CALL LIGHT IN REACH. BED IN LOW POSITION.
--- NOTE | 2019-12-04 00:04 | NUR ---
PATIENT IS SLEEPING COMFORTABLY, NO SIGNS OF DISTRESS. CALL LIGHT IN REACH. WILL CONTINUE TO MONTIOR.
--- NOTE | 2019-12-04 04:08 | NUR ---
PATIENT CONTINUES TO SLEEP WITH NO SIGN OF DISCOMFORT. WILL CONTINUE TO MONITOR.
--- NOTE | 2019-12-04 06:09 | NUR ---
SHIFT SUMMARY: KRISHAN HAD A PLEASANT EVENING. SLEEPING 90% OF THE SHIFT. PAIN MED WAS GIVEN BEFORE HE WENT TO SLEEP FOR BACK PAIN. ATTENDS CHANGED WHEN INDICATED TO KEEP DRY. DID WITHHELD BP MEDICATION LAST NIGHT DUE TO LOW BP. NO OTHER ACUTE CHANGES WERE NOTED THIS SHIFT.
--- NOTE | 2019-12-04 14:50 | NUR ---
HE WANTS TO SLEEP. NO BREAKFAST YET. DENIES PAIN.
--- NOTE | 2019-12-04 14:51 | NUR ---
HE ATE A LATE BREAKFAST. NO OTHER CHANGES.
--- NOTE | 2019-12-04 14:56 | NUR ---
HE IS ASLEEP IN BED. ATTENDS ON. HE DID NOT EAT MUCH LUNCH EVEN THOUGH HE WAS SITTING UP IN THE CHAIR.
--- NOTE | 2019-12-04 15:22 | NUR ---
I SPOKE WITH THE PATIENT ABOUT A ROOM CHANGE TO WAKE [facility] FOR HOUSE CONVENIENCE. I ALSO CALLED HIS NEIGHBOR NICOLE TO LET HIM KNOW. NICOLE SAYS HE EXPECTS CONCHITA'S SON TO ARRIVE FROM OUT OF TOWN TODAY.
--- NOTE | 2019-12-04 15:43 | NUR ---
TRANSFERRED TO 363 BY BED. REPORT GIVEN TO SHARITA STEELE.
[2019-12-04] MEDS ORDERED: ACET325 PO (16:00)
[2019-12-04] MEDS ORDERED: DOCU100 PO (16:00)
[2019-12-04] MEDS ORDERED: METO25 PO (16:01)
[2019-12-04] MEDS ORDERED: LIOT25 PO (16:01)
[2019-12-04] MEDS ORDERED: ROXICODONE5 MG PO (16:01)
[2019-12-04] MEDS ORDERED: MIRALAX17 GM PO (16:01)
[2019-12-04] MEDS ORDERED: MORP20L PO (16:02)
--- NOTE | 2019-12-04 16:11 | NUR ---
TRANSFER PATIENT TRANSFERRED TO ROOM 363. REPORT RECEIVED. PATIENT ON COMFORT CARE. COMPLETING CC CHECKS ORDERED. PATIENT INTENDED TO D/C TOMORROW.
--- NOTE | 2019-12-04 17:27 | NUR ---
SHIFT SUMMARY PATIENT TRANSFERRED TO CARE LATE INTO SHIFT. COMFORT CARE ASSESSMENTS COMPLETED ORDERED. PAIN MANAGED WITH PRN MEDICATIONS AND REPOSITIONS. LN TO CONTINUE TO MONITOR.
--- NOTE | 2019-12-05 04:43 | NUR ---
SHIFT SUMMARY PT HAS HAD NO ISSUES NOTED. PT WAS MEDICATED FOR DISCOMFORT WITH GOOD RELIEF. PT HAS SLEPT FOR MOST OF SHIFT. PT REPOSITIONED TOLERATED. REPOSITIONING AND BRIEF CHANGE IS VERY UNCOMFORTABLE FOR HIM. PT CURRENTLY SLEEPING AND BREATHING EASY. CALL LIGHT IN REACH.
--- NOTE | 2019-12-05 09:18 | NUR ---
ASAD WAS GIVEN A BED BATH THIS MORNING BY TRENCH PIPE LAYER HELPER AND RN. ATTENDS CHANGED. MEPILEX CHANGED ON PATIENT'S LEFT ELBOW AND COCCYX. HEEL PROTECTORS PLACED ON PATIENT'S BLE. PATIENT ATE A BANANA AND ORANGE JUICE FOR BREAKFAST. MEDICATIONS GIVEN WITH WATER. NO COMPLAINTS. PATIENT JUST WISHES TO REST AT THE MOMENT.
--- NOTE | 2019-12-05 11:31 | NUR ---
THE PATIENT'S SON IS IN THE ROOM. CARE MANAGERS AWARE THAT THE SON IS HERE. PATIENT ASKED TO GET UP OUT OF BED TO AMBULATE TO THE BATHROOM. RN AND IMAGER ASSISTED THE PATIENT WITH A FWW AND GAIT BELT TO THE BATHROOM. HE SAT ON THE TOILET FOR ABOUYT 10 MINUTES WITH NO BOWEL MOVEMENT. PATIENT DID VOID WHILE ON THE TOILET. PATIENT FOLLOWS DIRECTIONS WELL. HE IS ALERT AND ORIENTED.
--- NOTE | 2019-12-05 14:40 | NUR ---
PATIENT IS AMBULATING TO THE BATHROOM TO TRY TO HAVE A BM. HE TELLS HIS SON WHEN HE HAS TO GO. 2PA WITH FWW AND GAITBELT.
--- NOTE | 2019-12-05 16:48 | NUR ---
PATIENT IS ASLEEP IN BED. HIS SON LEFT FOR THE NIGHT
--- NOTE | 2019-12-05 17:03 | NUR ---
PATIENT IS ALERT AND ORIENTED. SLOW TO RESPOND. HEARING AIDS ARE IN PLACE. BED BATH WAS COMPLETED THIS AM. THE PATIENT'S SON WAS AT THE BEDSIDE MOST OF THE DAY. THE PATIENT ASKED FOR ASSISTANCE WHEN NEEDING TO USE THE BATHROOM. HE AMBULATED WITH 2PA TO THE BATHROOM THREE TIMES. NO BM TODAY. BOWEL PROTOCOL IN PLACE. CARE MANAGERS AND HOME HEALTH ARE INVOLVED IN THE CARE OF THIS PATIENT. WILL CONTINUE TO MONITOR. THE PLAN IS FOR THE PATIENT TO GO HOME WITH HOME HEALTH AND HOSPICE ON Sunday. THE PATIENTS SON IS NOW THE PATIENT'S POWER OF DRYING UNIT FELTING MACHINE OPERATOR. THE SON WILL GO HOME WITH THE PATIENT AND HELP IN HIS CARE.
--- NOTE | 2019-12-05 18:37 | NUR ---
PATIENT ATE DINNER. REPOSITIONED IN BED.
--- NOTE | 2019-12-06 06:58 | NUR ---
SHIFT SUMMARY PT HAD NO ISSUES NOTED. PT HAS BEEN COMFORTABLE AND DECLINED ANY PAIN MEDS. PT IS EAGER TO GO HOME. PT CURRENTLY SLEEPING AND IN NO DISTRESS. CALL LIGHT IN REACH.
--- NOTE | 2019-12-06 12:00 | NUR ---
[facility] COMFORT CARE VISIT - CASE CONFERENCED WITH PT'S RN BEFORE VISIT. SHE REPORTS S/S APPEAR WELL MANAGED AND PT ACTUALLY IMPROVING IN ABILITY TO PARTICIPATE IN AMBULATION AND ADLS WITH LESS ASSIST AT THIS TIME. ASSESSED PT. HE DENIES PAIN. CHIEF CONCERN FROM PT AND SON AT BEDSIDE IS THAT PT HAS NOT HAD A BM WHILE HERE AND FOR 4-5 DAYS. DISCUSSED WITH RN. HE'S HAD MIRALAX AND COLACE PER eMAR FOR 3-4 DAYS WITHOUT RESULTS. RN TO CALL DR FOR ADDITIONAL BOWEL CARE ORDERS IF NO BM THIS AFTERNOON. PT MAY NEED SUPPOSITORY OR ENEMA BEFORE D/C IF PO BOWEL REGIME IS INEFFECTIVE.
--- NOTE | 2019-12-06 12:13 | NUR ---
SON IS AT THE BEDSIDE
--- NOTE | 2019-12-06 13:43 | NUR ---
PATIENT ATE 75% OF HIS LUNCH. HE IS NOW RESTING IN BED. HIS SON IS AT THE BEDSIDE.
--- NOTE | 2019-12-06 16:03 | NUR ---
NO COMPLAINTS BY THE PATIENT. SENNA ORDERED BY DR. MOSS FOR CONSTIPATION.
--- NOTE | 2019-12-06 17:37 | NUR ---
PATIENT IS RESTING IN BED. SON HAS GONE HOME FOR THE NIGHT.
--- NOTE | 2019-12-07 10:43 | NUR ---
[facility] C[facility] COMFORT CARE VISIT: Brief visit to check pt status and s/s. Pt is kashia and questions are repeated. He reports that he is not hurting or experiencing pain. Son states pt was able to have a bowel movement yesterday. This was their primary concern before leaving the hospital. Later discussed d/c plans due to current d/c orders to go home with hospice with the separator operator [employer], who will contact the monitor technician [facility] typewriter aligner to verify when they can admit to services. Care managers had plans initiated and RN to review their notes also.
--- NOTE | 2019-12-07 18:35 | NUR ---
SUMMARY: PT IS COMFORT CARE.NO CHANGE TODAY. SEE MD PROGRESS NOTE. PT SLEPT PART OF DAY. PT SON AT BEDSIDE IN MORNING. PLAN IS FOR DC HOME WITH SON AND ON HOSPICE TOMORROW. WILL CTM AND PASS REPORT TO [facility]EE[facility]
--- NOTE | 2019-12-07 21:45 | NUR ---
PT STATES HE IS COMFORTABLE AND HAS NO NEEDS AT THIS TIME.
--- NOTE | 2019-12-07 23:45 | NUR ---
HELPED TO TOILET. STATES FEELS COMFORTABLE. NO NEEDS AT THIS TIME.
--- NOTE | 2019-12-08 05:04 | NUR ---
NOC SHIFT SUMMARY PT IS PLEASANT AND COOPERATIVE WITH CARE. HE HAS SLEPT ON AND OFF FOR MOST OF THE NIGHT. UP SEVERAL TIMES TO THE BATHROOM. WHEN ASKED HE DENIES PAIN OR DISCOMFORT. NO STATUS CHANGES NOTED THIS SHIFT. WILL CONTINUE TO MONITOR.
[2019-12-08] MEDS ORDERED: Ativan1 MG (11:50)
[2019-12-08] MEDS ORDERED: ZUPLENZ4 MG (11:52)
[2019-12-08] MEDS ORDERED: SENN187 (11:53)
--- NOTE | 2019-12-08 13:18 | NUR ---
PT DISCHARGED FROM UNIT, LEFT WITH TRANSPORT VIA WHEELCHAIR. PT WILL GO HOME ON HOSPICE. IV REMOVED. DISCHARGE INSTRUCTIONS REVIEWED. HARD COPY OF PRESCRIPTIONS SENT WITH PT.
== END 2019-12-08 12:27 | disposition hospice, home (50) ==
LOC: ER 17:48 → PCU 20:45 → MEDS 11-28 17:55
PROVIDERS: Emergency Medicine; ADMIT Internal Medicine
DX: I48.91 Unspecified atrial fibrillation (principal); C61 Malignant neoplasm of prostate; I11.0 Hypertensive heart disease with heart failure; I50.32 Chronic diastolic (congestive) heart failure; E11.9 Type 2 diabetes mellitus without complications; J90 Pleural effusion, not elsewhere classified; C79.9 Secondary malignant neoplasm of unspecified site; E03.9 Hypothyroidism, unspecified; Z87.891 Personal history of nicotine dependence; Z79.84 Long term (current) use of oral hypoglycemic drugs
CPT/HCPCS: 36415; 51701; 70450; 71260; 72125; 74177; 80053; 81001; 82140; 82550; 82553; 83880; 84439; 84443; 84481; 84484; 85025; 85610; 85730; 87086; 93005; 93010; 96360-59; 96361; 96361-59; 96374; 96375; 96376; 97163; 97165; 97530; 99285-25; G0378; J1644; J2405; J7030; J7120; Q9967